=== PATIENT | male | born 1980 | race Caucasian/White ===

== ENCOUNTER 2017-06-19 09:23 | Emergency (ER) | payer OTHER ==
[~2017-06-19] VITALS: Ht 180.3 cm; Wt 68.0 kg
[2017-06-19] MEDS ORDERED: VENTOLIN HFA18 GM INH (11:02)
== END 2017-06-19 11:59 | disposition home or self-care (01) ==
LOC: ED 09:23
DX: R10.12 Left upper quadrant pain (principal); J40 Bronchitis, not specified as acute or chronic; Z87.442 Personal history of urinary calculi
CPT/HCPCS: 71020; 80053; 81001; 83690; 85025; 99283

== ENCOUNTER 2017-10-01 22:41 | Emergency (ER) | payer OTHER ==
[~2017-10-01] VITALS: Ht 182.9 cm; Wt 170.0 kg
[~2017-10-01 22:41] MED LIST: VENTOLIN HFA18 GM INH
[2017-10-01] MEDS ORDERED: PENICILLIN V P500 MG PO (22:59)
== END 2017-10-01 23:16 | disposition home or self-care (01) ==
LOC: ED 22:41
DX: G89.18 Other acute postprocedural pain (principal); K08.89 Other specified disorders of teeth and supporting structures; F17.200 Nicotine dependence, unspecified, uncomplicated; Z98.818 Other dental procedure status
CPT/HCPCS: 99283

== ENCOUNTER 2019-07-20 10:58 | Emergency (ER) | payer OTHER ==
[~2019-07-20 10:58] MED LIST changes: +PENICILLIN V P500 MG PO
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
--- NOTE | 2019-07-21 08:10 | NUR ---
Received call from CHW, Norma. She was contacted by Peer to Peer support, Marlen. She went to the ER and spoke with pt. He declined any help, but did take a ride from them to the place of his choice.
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
== END 2019-07-20 17:50 | disposition short-term general hospital (02) ==
LOC: ED 10:58
PROC: 0T9B70Z Drainage of Bladder with Drainage Device, Via Natural or Artificial Opening (ICD-10-PCS; principal; 2019-07-20)
DX: S06.0X9A Concussion with loss of consciousness of unspecified duration, initial encounter (principal); S81.012A Laceration without foreign body, left knee, initial encounter; S70.02XA Contusion of left hip, initial encounter; V03.90XA Pedestrian on foot injured in collision with car, pick-up truck or van, unspecified whether traffic or nontraffic accident, initial encounter; F17.200 Nicotine dependence, unspecified, uncomplicated
CPT/HCPCS: 51701; 70450; 71260; 72125; 73502; 74177; 80053; 81001; 82150; 82550; 83690; 85025; 86850; 86900; 86901; 90471; 90715; 99285-25; G0480; J7030; Q9967

== ENCOUNTER 2019-08-01 01:00 | Emergency (ER) | payer OTHER ==
[~2019-08-01] VITALS: Ht 182.9 cm; Wt 77.1 kg
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
[2019-08-01] MEDS ORDERED: CYMBALTA30 MG PO (01:11)
[2019-08-01] MEDS ORDERED: BUSPIRONE HCL10 MG PO (01:11)
[2019-08-01] MEDS ORDERED: CLEOCIN HCL300 MG PO (01:48)
== END 2019-08-01 02:06 | disposition home or self-care (01) ==
LOC: ED 01:00
DX: S70.02XD Contusion of left hip, subsequent encounter (principal); S80.212D Abrasion, left knee, subsequent encounter; L03.116 Cellulitis of left lower limb; F17.200 Nicotine dependence, unspecified, uncomplicated; Z79.899 Other long term (current) drug therapy; V43.92XD Unspecified car occupant injured in collision with other type car in traffic accident, subsequent encounter
CPT/HCPCS: 99283

== ENCOUNTER 2021-01-30 16:37 | Emergency (ER) | payer OTHER ==
[~2021-01-30] VITALS: Ht 182.9 cm; Wt 90.3 kg
[~2021-01-30 16:37] MED LIST changes: +BUSPIRONE HCL10 MG PO; +CLEOCIN HCL300 MG PO; +CYMBALTA30 MG PO
[2021-01-30] MEDS ORDERED: MIRTAZAPINE45 MG PO (16:47)
== END 2021-01-30 17:21 | disposition home or self-care (01) ==
LOC: ED 16:37
DX: S01.81XA Laceration without foreign body of other part of head, initial encounter (principal); W22.8XXA Striking against or struck by other objects, initial encounter; F17.200 Nicotine dependence, unspecified, uncomplicated; Z79.899 Other long term (current) drug therapy
CPT/HCPCS: 12011; 99282-25

== ENCOUNTER 2021-03-25 19:16 | Emergency (ER) | payer OTHER ==
[~2021-03-25] VITALS: Ht 182.9 cm; Wt 90.3 kg
[~2021-03-25 19:16] MED LIST changes: +MIRTAZAPINE45 MG PO
[2021-03-25] MEDS ORDERED: GUANFACINE HCL E1 MG PO (21:53)
--- NOTE | 2021-03-27 19:52 | EKG ---
[facility] [address] [facility] [place], [place] [address] Signed Normal sinus rhythm Possible Left atrial enlargement Nonspecific ST abnormality Abnormal ECG No previous ECGs available Confirmed by CLAUDIA OAKES DO ([id number]) on 03/27/2021 7:52:07 PM Electronically Signed By: CLAUDIA OAKES DO 03/27/211951 PATIENT NAME: MESFIN MACKENZIE LETI Electrocardiogram DATE OF : 82 PHYSICIAN: CLAUDIA OAKES DO REPORT #: [id number] REPORT IS CONFIDENTIAL AND NOT TO BE RELEASED WITHOUT AUTHORIZATION
== END 2021-03-25 23:18 | disposition home or self-care (01) ==
LOC: ED 19:16
DX: R55 Syncope and collapse (principal); R07.89 Other chest pain; F17.200 Nicotine dependence, unspecified, uncomplicated; Z79.899 Other long term (current) drug therapy
CPT/HCPCS: 71045; 80053; 82553; 83735; 84484; 85025; 85379; 93005; 93010; 99284-25; J7030

== ENCOUNTER 2021-05-17 10:58 | Emergency (ER) | payer OTHER ==
[~2021-05-17] VITALS: Ht 182.9 cm; Wt 90.3 kg
[~2021-05-17 10:58] MED LIST changes: +GUANFACINE HCL E1 MG PO
[2021-05-17] MEDS ORDERED: OMEPRAZOLE20 MG PO (11:06)
== END 2021-05-17 12:08 | disposition home or self-care (01) ==
LOC: ED 10:58
PROC: 0HQGXZZ Repair Left Hand Skin, External Approach (ICD-10-PCS; principal; 2021-05-17)
DX: S61.213A Laceration without foreign body of left middle finger without damage to nail, initial encounter (principal); F17.200 Nicotine dependence, unspecified, uncomplicated; Z23 Encounter for immunization; Z79.899 Other long term (current) drug therapy; W23.0XXA Caught, crushed, jammed, or pinched between moving objects, initial encounter
CPT/HCPCS: 12001; 90471; 90715; 99282-25

== ENCOUNTER 2021-08-05 23:22 | Emergency (ER) | payer OTHER ==
[~2021-08-05] VITALS: Ht 182.9 cm; Wt 79.0 kg
[~2021-08-05 23:22] MED LIST changes: +OMEPRAZOLE20 MG PO
[2021-08-05] MEDS ORDERED: AMLODIPINE BESYL5 MG PO (23:45)
[2021-08-05] MEDS ORDERED: VISTARIL25 MG PO (23:45)
[2021-08-06] MEDS ORDERED: LIDODERM1 EACH TOP (02:05)
[2021-08-06] MEDS ORDERED: IBU600 MG PO (02:05)
[2021-08-06] MEDS ORDERED: MAPAP500 MG PO (02:05)
[2021-08-06] MEDS ORDERED: VALIUM5 MG PO (02:05)
== END 2021-08-06 02:25 | disposition home or self-care (01) ==
LOC: ED 23:22
DX: M54.50 Low back pain, unspecified (principal); I10 Essential (primary) hypertension; F17.200 Nicotine dependence, unspecified, uncomplicated; Z79.899 Other long term (current) drug therapy
CPT/HCPCS: 99283; A9270

== ENCOUNTER 2022-04-13 02:20 | Emergency (ER) | payer OTHER ==
[~2022-04-13] VITALS: Ht 182.9 cm; Wt 84.1 kg
[~2022-04-13 02:20] MED LIST changes: +AMLODIPINE BESYL5 MG PO; +IBU600 MG PO; +LIDODERM1 EACH TOP; +MAPAP500 MG PO; +VALIUM5 MG PO; +VISTARIL25 MG PO
== END 2022-04-13 02:42 | disposition home or self-care (01) ==
LOC: ED 02:20
DX: M25.511 Pain in right shoulder (principal); I10 Essential (primary) hypertension; F17.200 Nicotine dependence, unspecified, uncomplicated
CPT/HCPCS: 99283

== ENCOUNTER 2022-07-15 03:58 | Emergency (ER) | payer OTHER ==
[~2022-07-15] VITALS: Ht 182.9 cm; Wt 84.1 kg
[2022-07-15] MEDS ORDERED: BETAMETHASONE D15 G2 TOP (04:18)
== END 2022-07-15 04:30 | disposition home or self-care (01) ==
LOC: ED 03:58
DX: L30.8 Other specified dermatitis (principal); I10 Essential (primary) hypertension
CPT/HCPCS: 99282

== ENCOUNTER 2024-08-19 01:46 | Emergency (ER) | payer OTHER ==
[~2024-08-19] VITALS: Ht 182.9 cm; Wt 85.0 kg
[~2024-08-19 01:46] MED LIST changes: +BETAMETHASONE D15 G2 TOP
[2024-08-19] MEDS ORDERED: ACETAMINOPHEN 500 MG TAB PO ONE (02:15)
[2024-08-19] MEDS ORDERED: AMOXICILLIN/CLAVULANATE K 875 MG HOME.PACK PO ONE (02:15)
[2024-08-19] MEDS ORDERED: AMOX TR-K CLV1 EAC1 PO (02:35)
[2024-08-19 02:44] VITALS: BP 131/76
== END 2024-08-19 02:45 | disposition home or self-care (01) ==
LOC: ED 01:46
DX: K04.7 Periapical abscess without sinus (principal); K02.9 Dental caries, unspecified; F17.200 Nicotine dependence, unspecified, uncomplicated
CPT/HCPCS: 99282; A9270